=== PATIENT | female | born 1960 | race American Indian/Alaskan Native ===

== ENCOUNTER 2019-08-22 16:08 | Emergency (ER) | payer OTHER, BC ==
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
[2019-08-22] MEDS ORDERED: CYCLOBENZAPRINE 10 MG TAB PO ONE (19:08)
[2019-08-22] MEDS ORDERED: IBUPROFEN 600 MG TAB PO ONE (19:08)
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
[2019-08-22 19:58] VITALS: BP 187/99
== END 2019-08-22 19:25 | disposition home or self-care (01) ==
LOC: ED 16:08
DX: S96.911A Strain of unspecified muscle and tendon at ankle and foot level, right foot, initial encounter (principal); S40.022A Contusion of left upper arm, initial encounter; I10 Essential (primary) hypertension; V49.49XA Driver injured in collision with other motor vehicles in traffic accident, initial encounter; Y93.89 Activity, other specified; Y92.488 Other paved roadways as the place of occurrence of the external cause; Y99.8 Other external cause status